=== PATIENT | female | born 1985 | race African-American/Black ===

== ENCOUNTER 2023-01-13 21:43 | Emergency (ER) | payer OTHER ==
[~2023-01-13] VITALS: Ht 160 cm; Wt 91.0 kg
[2023-01-13 21:50] VITALS: O2SAT 98
[2023-01-14 00:20] VITALS: BP 136/82
[2023-01-14] MEDS ORDERED: ONDANSETRON HCL 4MG TABLET PO ONE (00:45)
[2023-01-14] MEDS ORDERED: KETOROLAC 30MG/ML VIAL IM ONE (00:45)
[2023-01-14] MEDS ORDERED: GUAI-948 MT (01:04)
[2023-01-14] MEDS ORDERED: BENZ200C52 MT (01:04)
[2023-01-14] MEDS ORDERED: DIPHENHYDRAMINE 25MG CAPSULE PO ONE (01:30)
[2023-01-14 01:53] VITALS: PULSE 90; RESP 17; TEMP 98.9
[2023-01-14 05:35] LABS: CLARITY URINE CLEAR (CLEAR); COLOR URINE YELLOW (YELLOW); SPECIFIC GRAVITY URINE 1.007 (1.005-1.030)
[2023-01-14 05:36] LABS: GLUCOSE URINE NEGATIVE (NEGATIVE); KETONES URINE NEGATIVE (NEGATIVE); NITRITE URINE NEGATIVE (NEGATIVE); OCCULT BLOOD URINE NEGATIVE (NEGATIVE); PH URINE 6.5 (4.5-8.0); PROTEIN URINE NEGATIVE (NEGATIVE)
[2023-01-14 05:37] LABS: LEUKOCYTE ESTERASE URINE NEGATIVE (NEGATIVE); UROBILINOGEN URINE 0.2 E.U./dL (0.2-1.0)
== END 2023-01-14 01:55 | disposition home or self-care (01) ==
LOC: ER 21:43
DX: J06.9 Acute upper respiratory infection, unspecified (principal); R05.9 Cough, unspecified; G43.909 Migraine, unspecified, not intractable, without status migrainosus
CPT/HCPCS: 99284; 71045; 81003; 81025; 96372; Q0162; J1885